=== PATIENT | male | born 1975 | race Caucasian/White ===

== ENCOUNTER 2016-04-02 10:52 | Emergency (ER) | payer MEDICAID ==
[~2016-04-02] VITALS: Ht 185.4 cm; Wt 111.4 kg
[~2016-04-02 10:52] MED LIST: AMOXICILLIN 50500 MG PO; LEXAPRO20 MG PO; ULTRAM 50MG TAB50 MG PO
[2016-04-02 11:00] VITALS: BP 131/93; TEMP 98.3
[2016-04-02] MEDS ORDERED: NEURONTIN300 MG/CAP PO (11:04)
[2016-04-02 11:26] LABS: BASO % 0.5 % (0.0-2.0); EOS # 0.2 (0.0-0.7); EOS % 3.9 % (0-4.0); GRAN # 2.7 (1.4-6.5); GRAN % 47.1 % (42.2-75.2); HEMOGLOBIN 13.8 g/dl (13.5-18.0); LYMPH # 2.2 (1.2-3.4); LYMPH % 38.8 % (20.0-51.0); MEAN CELL VOLUME 88 fl (80.0-100.0); MEAN CORPUSCULAR HEMOGLOBIN 30 pg (27.0-31.0); MEAN CORPUSCULAR HGB CONC 34 g/dl (33.0-37.0); MONO # 0.5 (0.1-0.6); MONO % 9.3 % (1.7-9.3); PLATELET COUNT 194 K/mm3 (130-400); RED BLOOD COUNT 4.67 M/mm3 (4.20-5.60); REDCELL DISTRIBUTION WIDTH-CV 13.6 % (11.5-14.5); WHITE BLOOD COUNT 5.7 K/mm3 (4.8-10.8)
[2016-04-02 11:47] LABS: ADJUSTED CALCIUM 9.2 mg/dL (8.4-10.2); ALBUMIN 4.1 gm/dL (3.5-5.0); BILIRUBIN,TOTAL 0.5 mg/dL (0.0-1.0); CALCIUM 9.3 mg/dL (8.4-10.2); CREATININE, serum 1.03 mg/dL (0.66-1.25); POTASSIUM 4.3 mmol/L (3.4-5.0); TOTAL PROTEIN 7.5 gm/dL (6.4-8.2)
[2016-04-02] MEDS ORDERED: IBU800 M1 PO (13:21)
[2016-04-02] MEDS ORDERED: FLOMAX 0.40.4 MG/CAP PO (13:21)
[2016-04-02] MEDS ORDERED: NORCO 325 MG-7.1 TAB PO (13:21)
[2016-04-02 13:42] LABS: PH 6 (5-8); SQUAMOUS EPITHELIAL None Seen /hpf; URINE APPEARANCE Clear; URINE BACTERIA None Seen /hpf; URINE BILIRUBIN Negative (NEGATIVE); URINE BLOOD Negative (NEGATIVE); URINE COLOR Yellow; URINE GLUCOSE Negative (NEGATIVE); URINE KETONE Negative (NEGATIVE); URINE RBC 0-2 /hpf; URINE UROBILINOGEN Negative (NEGATIVE); URINE WBC 0-2 /hpf
[2016-04-02 14:10] VITALS: PULSE 73
== END 2016-04-02 14:10 | disposition home or self-care (01) ==
LOC: COL.ER 10:52
PROVIDERS: Physician Assistant
DX: N20.0 Calculus of kidney (principal); Z87.442 Personal history of urinary calculi
CPT/HCPCS: J1170; J2405; J7030

== ENCOUNTER → 2016-04-04 | Outpatient (CLI) | payer MEDICAID ==
[~2016-04-04] MED LIST changes: +AMBIEN 10MG10 MG PO; +ASPI325T6 PO; +CATAPRES 0.1MG0.1 MG PO; +DESYREL 100MG100 MG PO; +DOXYCYCLINE 10100 MG PO; +EFFEXOR 75M75 MG/TAB PO; +FIORICET 325 MG1 TA1 PO; +FLOMAX 0.40.4 MG/CAP PO; +IBU800 M1 PO; +KLONOPIN 1MG1 MG PO; +LIPITOR 40MG TA40 MG PO; +NEURONTIN300 MG/CAP PO; +NORCO 325 MG-51 TAB PO; +NORCO 325 MG-7.1 TAB PO; +PERCOCET 325 MG1 TA2 PO; +PLAVIX 75MG TAB75 MG PO; +ZANAFLEX CAPSULE2 MG PO; +ZOFRAN ODT4 MG PO
== END ==
LOC: COL.RAD 14:15
DX: N20.0 Calculus of kidney (principal)

== ENCOUNTER 2016-04-28 15:29 | Emergency (ER) | payer MEDICAID ==
[~2016-04-28] VITALS: Ht 182.9 cm; Wt 113.6 kg
[~2016-04-28 15:29] MED LIST changes: -AMBIEN 10MG10 MG PO; -ASPI325T6 PO; -CATAPRES 0.1MG0.1 MG PO; -DESYREL 100MG100 MG PO; -DOXYCYCLINE 10100 MG PO; -EFFEXOR 75M75 MG/TAB PO; -FIORICET 325 MG1 TA1 PO; -KLONOPIN 1MG1 MG PO; -LIPITOR 40MG TA40 MG PO; -NORCO 325 MG-51 TAB PO; -PERCOCET 325 MG1 TA2 PO; -PLAVIX 75MG TAB75 MG PO; -ZANAFLEX CAPSULE2 MG PO; -ZOFRAN ODT4 MG PO
[2016-04-28 15:33] VITALS: TEMP 99.3
[2016-04-28] MEDS ORDERED: EFFEXOR 75M75 MG/TAB PO (15:56)
[2016-04-28 16:19] LABS: BASO % 0.6 % (0.0-2.0); EOS # 0.2 (0.0-0.7); EOS % 3.3 % (0-4.0); GRAN # 3.6 (1.4-6.5); GRAN % 51.6 % (42.2-75.2); HEMATOCRIT 39.2 % (42.0-52.0); HEMOGLOBIN 13.4 g/dl (13.5-18.0); LYMPH # 2.5 (1.2-3.4); LYMPH % 36.4 % (20.0-51.0); MEAN CELL VOLUME 87 fl (80.0-100.0); MEAN CORPUSCULAR HEMOGLOBIN 30 pg (27.0-31.0); MEAN CORPUSCULAR HGB CONC 34 g/dl (33.0-37.0); MONO # 0.6 (0.1-0.6); PLATELET COUNT 244 K/mm3 (130-400); RED BLOOD COUNT 4.53 M/mm3 (4.20-5.60); REDCELL DISTRIBUTION WIDTH-CV 13.2 % (11.5-14.5); WHITE BLOOD COUNT 6.9 K/mm3 (4.8-10.8)
[2016-04-28 17:27] LABS: ADJUSTED CALCIUM 9.1 mg/dL (8.4-10.2); BILIRUBIN,TOTAL 0.6 mg/dL (0.0-1.0); C-REACTIVE PROTEIN 0.7 mg/dL (0.0-0.9); CALCIUM 9.1 mg/dL (8.4-10.2); CREATININE, serum 1.11 mg/dL (0.66-1.25); TOTAL PROTEIN 7.2 gm/dL (6.4-8.2)
[2016-04-28 18:59] VITALS: BP 132/75; PULSE 76
[2016-04-29] MEDS ORDERED: NORCO 325 MG-51 TAB PO (18:51)
== END 2016-04-28 19:05 | disposition home or self-care (01) ==
LOC: COL.ER 15:29
PROVIDERS: Emergency Medicine
DX: R51 Headache (principal); H53.9 Unspecified visual disturbance
CPT/HCPCS: J1170; J1200; J1885; J2405; J7030

== ENCOUNTER 2016-04-29 17:57 | Emergency (ER) | payer MEDICAID ==
[~2016-04-29] VITALS: Ht 182.9 cm; Wt 114.1 kg
[~2016-04-29 17:57] MED LIST changes: +EFFEXOR 75M75 MG/TAB PO
[2016-04-29 18:03] VITALS: BP 125/74; TEMP 98.3
[2016-04-29] MEDS ORDERED: NORCO 325 MG-51 TAB PO (18:51)
[2016-04-29 19:01] VITALS: PULSE 69
== END 2016-04-29 19:02 | disposition home or self-care (01) ==
LOC: COL.ER 17:57
DX: S62.661A Nondisplaced fracture of distal phalanx of left index finger, initial encounter for closed fracture (principal); S60.022A Contusion of left index finger without damage to nail, initial encounter; W22.8XXA Striking against or struck by other objects, initial encounter; W27.8XXA Contact with other nonpowered hand tool, initial encounter; Y92.009 Unspecified place in unspecified non-institutional (private) residence as the place of occurrence of the external cause

== ENCOUNTER → 2016-05-09 | Outpatient (CLI) | payer MEDICAID ==
[~2016-05-09] MED LIST changes: +AMBIEN 10MG10 MG PO; +ASPI325T6 PO; +CATAPRES 0.1MG0.1 MG PO; +DESYREL 100MG100 MG PO; +DOXYCYCLINE 10100 MG PO; +FIORICET 325 MG1 TA1 PO; +KLONOPIN 1MG1 MG PO; +LIPITOR 40MG TA40 MG PO; +NORCO 325 MG-51 TAB PO; +PERCOCET 325 MG1 TA2 PO; +PLAVIX 75MG TAB75 MG PO; +ZANAFLEX CAPSULE2 MG PO; +ZOFRAN ODT4 MG PO
[2016-05-14 00:09] LABS: VARICELLA INDEX 2.43 OD Ratio (>1.09)
[2016-06-17 14:53] LABS: HERPES SIMPLEX VIRUS 1 IGG Positive (()); HERPES SIMPLEX VIRUS 2 IGG Negative (())
== END ==
LOC: COL.RAD 07:46
PROVIDERS: Internal Medicine
DX: H34.232 Retinal artery branch occlusion, left eye (principal)
CPT/HCPCS: A9585

== ENCOUNTER 2016-05-23 05:17 | Day surgery (SDC) | payer MEDICAID ==
[2016-05-23] VITALS (7 sets, daily range): BP systolic 131–146; BP diastolic 75–90; PULSE 52–59; TEMP 97.4–98.1
[~2016-05-23] VITALS: Ht 182.9 cm; Wt 113.6 kg
[~2016-05-23 05:17] MED LIST changes: -AMBIEN 10MG10 MG PO; -ASPI325T6 PO; -CATAPRES 0.1MG0.1 MG PO; -DESYREL 100MG100 MG PO; -DOXYCYCLINE 10100 MG PO; -FIORICET 325 MG1 TA1 PO; -KLONOPIN 1MG1 MG PO; -LIPITOR 40MG TA40 MG PO; -PERCOCET 325 MG1 TA2 PO; -PLAVIX 75MG TAB75 MG PO; -ZANAFLEX CAPSULE2 MG PO; -ZOFRAN ODT4 MG PO
[2016-05-23] MEDS ORDERED: EFFEXOR 75M75 MG/TAB PO (06:40)
[2016-05-23] MEDS ORDERED: DESYREL 100MG100 MG PO (06:42)
[2016-05-23] MEDS ORDERED: CATAPRES 0.1MG0.1 MG PO (06:43)
[2016-05-23] MEDS ORDERED: KLONOPIN 1MG1 MG PO (06:43)
[2016-05-23] MEDS ORDERED: ASPI325T6 PO (06:44)
[2016-05-23] MEDS ORDERED: LIPITOR 40MG TA40 MG PO (06:44)
[2016-05-23] MEDS ORDERED: PERCOCET 325 MG1 TA2 PO (09:13)
[2016-05-23] MEDS ORDERED: ZOFRAN ODT4 MG PO (09:13)
== END 2016-05-23 11:35 | disposition home or self-care (01) ==
LOC: SDCO 05:17
DX: H54.62 Unqualified visual loss, left eye, normal vision right eye (principal); G44.89 Other headache syndrome
CPT/HCPCS: J2250; J2270; J2704; J3010; J7120

== ENCOUNTER 2016-05-24 11:15 | Emergency (ER) | payer MEDICAID ==
[~2016-05-24] VITALS: Ht 182.9 cm; Wt 113.6 kg
[~2016-05-24 11:15] MED LIST changes: +ASPI325T6 PO; +CATAPRES 0.1MG0.1 MG PO; +DESYREL 100MG100 MG PO; +KLONOPIN 1MG1 MG PO; +LIPITOR 40MG TA40 MG PO; +PERCOCET 325 MG1 TA2 PO; +ZOFRAN ODT4 MG PO
[2016-05-24 11:40] VITALS: BP 141/89; TEMP 97.4
[2016-05-24 13:28] VITALS: PULSE 58
== END 2016-05-24 13:29 | disposition home or self-care (01) ==
LOC: COL.ER 11:15
DX: R51 Headache (principal)
CPT/HCPCS: J1170; J2550

== ENCOUNTER 2016-06-10 12:49 | Outpatient (CLI) | payer MEDICAID ==
[~2016-06-10] VITALS: Ht 182.9 cm; Wt 116.8 kg
[2016-06-10 13:24] VITALS: BP 121/80; PULSE 61
[2016-06-10 14:40] VITALS: BP 119/71; PULSE 64
[2016-06-10 14:50] VITALS: BP 119/71; PULSE 62
[2016-06-10 14:55] VITALS: BP 124/60; PULSE 61
[2016-06-10 15:10] VITALS: BP 137/71; PULSE 54
[2016-06-10 15:25] VITALS: BP 159/90; PULSE 55; TEMP 97.5
[2016-06-10 15:33] LABS: CEREBROSPINAL TUBE #1; CEREBROSPINAL TUBE #3; CSF APPEARANCE CLEAR; CSF COLOR COLORLESS
[2016-07-02 14:10] LABS: VARICELLA ZOSTER DNA Negative (()); VDRL-CSF Negative (())
== END 2016-06-10 15:45 | disposition home or self-care (01) ==
LOC: COL.RAD 12:49
PROVIDERS: Family Medicine
DX: H34.12 Central retinal artery occlusion, left eye (principal); B96.89 Other specified bacterial agents as the cause of diseases classified elsewhere

== ENCOUNTER → 2016-06-13 | Outpatient (CLI) | payer MEDICAID ==
[~2016-06-13] MED LIST changes: +AMBIEN 10MG10 MG PO; +DOXYCYCLINE 10100 MG PO; +FIORICET 325 MG1 TA1 PO; +PLAVIX 75MG TAB75 MG PO; +ZANAFLEX CAPSULE2 MG PO
== END ==
LOC: COL.RAD 13:06
DX: I67.1 Cerebral aneurysm, nonruptured (principal); R51 Headache

== ENCOUNTER → 2016-07-04 | Outpatient (CLI) | payer MEDICAID | LOC: MHCPAIN 10:47 | DX: G89.29 Other chronic pain (principal); M54.12 Radiculopathy, cervical region; M54.81 Occipital neuralgia | CPT/HCPCS: G0463 ==

== ENCOUNTER → 2016-08-01 | Outpatient (CLI) | payer MEDICAID | LOC: COL.RAD 07:19 | DX: M54.12 Radiculopathy, cervical region (principal); M48.02 Spinal stenosis, cervical region; Z98.1 Arthrodesis status | CPT/HCPCS: A9585 ==

== ENCOUNTER 2016-08-02 11:43 | Emergency (ER) | payer MEDICAID ==
[~2016-08-02] VITALS: Ht 182.9 cm; Wt 113.6 kg
[~2016-08-02 11:43] MED LIST changes: -AMBIEN 10MG10 MG PO; -DOXYCYCLINE 10100 MG PO; -FIORICET 325 MG1 TA1 PO; -PLAVIX 75MG TAB75 MG PO; -ZANAFLEX CAPSULE2 MG PO
[2016-08-02 12:31] LABS: BASO % 0.7 % (0.0-2.0); EOS # 0.3 (0.0-0.7); EOS % 5.4 % (0-4.0); GRAN # 2.1 (1.4-6.5); GRAN % 38.9 % (42.2-75.2); HEMATOCRIT 43.3 % (42.0-52.0); HEMOGLOBIN 14.2 g/dl (13.5-18.0); LYMPH # 2.5 (1.2-3.4); LYMPH % 45.4 % (20.0-51.0); MEAN CELL VOLUME 90 fl (80.0-100.0); MEAN CORPUSCULAR HEMOGLOBIN 29 pg (27.0-31.0); MEAN CORPUSCULAR HGB CONC 33 g/dl (33.0-37.0); MEAN PLATELET VOLUME 9.8 fl (7.4-10.4); MONO # 0.5 (0.1-0.6); MONO % 9.4 % (1.7-9.3); PLATELET COUNT 193 K/mm3 (130-400); RED BLOOD COUNT 4.84 M/mm3 (4.20-5.60); REDCELL DISTRIBUTION WIDTH-CV 13.4 % (11.5-14.5); WHITE BLOOD COUNT 5.4 K/mm3 (4.8-10.8)
[2016-08-02 12:42] LABS: ADJUSTED CALCIUM 8.8 mg/dL (8.4-10.2); ALANINE AMINOTRANSFERASE 38 U/L (21-72); ALBUMIN 4.1 gm/dL (3.5-5.0); ALKALINE PHOSPHATASE 72 U/L (50-136); ANION GAP 12 mmol/L (7-16); BILIRUBIN,TOTAL 0.6 mg/dL (0.0-1.0); BLOOD UREA NITROGEN 16 mg/dL (9-20); CALCIUM 8.9 mg/dL (8.4-10.2); CARBON DIOXIDE 24 mmol/L (22-30); CHLORIDE 103 mmol/L (98-107); CREATININE, serum 0.96 mg/dL (0.66-1.25); GLUCOSE 92 mg/dL (74-106); POTASSIUM 4.1 mmol/L (3.4-5.0); SODIUM 139 mmol/L (137-145); TOTAL PROTEIN 7.1 gm/dL (6.4-8.2)
[2016-08-02 12:51] LABS: B-TYPE NATRIURETIC PEPTIDE 13 pg/mL (0-125)
[2016-08-02 12:56] LABS: C-REACTIVE PROTEIN < 0.5 mg/dL (0.0-0.9); TROPONIN-I < 0.012 ng/mL (0.000-0.034)
[2016-08-02 12:57] LABS: ERYTHROCYTE SEDIMENTATION RATE 1 mm/hr (0-15)
[2016-08-02 13:06] LABS: PH 6 (5-8); SQUAMOUS EPITHELIAL None Seen /hpf; URINE APPEARANCE Clear; URINE BACTERIA None Seen /hpf; URINE BILIRUBIN Negative (NEGATIVE); URINE BLOOD Negative (NEGATIVE); URINE COLOR Yellow; URINE GLUCOSE Negative (NEGATIVE); URINE KETONE Negative (NEGATIVE); URINE RBC 0-2 /hpf; URINE UROBILINOGEN Negative (NEGATIVE); URINE WBC 0-2 /hpf
[2016-08-02 14:53] VITALS: BP 133/67; PULSE 67; TEMP 98.4
[2016-08-02] MEDS ORDERED: FIORICET 325 MG1 TA1 PO (15:24)
== END 2016-08-02 15:22 | disposition home or self-care (01) ==
LOC: COL.ER 11:43
PROVIDERS: Emergency Medicine
DX: R07.9 Chest pain, unspecified (principal); R51 Headache; R11.0 Nausea; R06.02 Shortness of breath; R07.1 Chest pain on breathing; H54.62 Unqualified visual loss, left eye, normal vision right eye
CPT/HCPCS: J1170; J1200; J1885; J2550; J7030

== ENCOUNTER → 2016-08-04 | Outpatient (CLI) | payer MEDICAID ==
[~2016-08-04] MED LIST changes: +AMBIEN 10MG10 MG PO; +DOXYCYCLINE 10100 MG PO; +FIORICET 325 MG1 TA1 PO; +PLAVIX 75MG TAB75 MG PO; +ZANAFLEX CAPSULE2 MG PO
== END ==
LOC: MHCPAIN 07:38
DX: G89.29 Other chronic pain (principal); M50.90 Cervical disc disorder, unspecified, unspecified cervical region; M54.12 Radiculopathy, cervical region; M54.81 Occipital neuralgia; M96.1 Postlaminectomy syndrome, not elsewhere classified
CPT/HCPCS: G0463

== ENCOUNTER → 2016-08-19 | Outpatient (CLI) | payer MEDICAID | LOC: MHCPAIN 10:47 | DX: G89.29 Other chronic pain (principal); M50.90 Cervical disc disorder, unspecified, unspecified cervical region; M54.12 Radiculopathy, cervical region; M54.81 Occipital neuralgia; R51 Headache | CPT/HCPCS: G0463 ==

== ENCOUNTER 2016-08-25 09:43 | Outpatient (CLI) | payer MEDICAID ==
[~2016-08-25] VITALS: Ht 182.9 cm; Wt 90.9 kg
[2016-08-25] VITALS (21 sets, daily range): BP systolic 105–129; BP diastolic 52–93; PULSE 55–67; TEMP 96.9–97.5
[~2016-08-25 09:43] MED LIST changes: -AMBIEN 10MG10 MG PO; -DOXYCYCLINE 10100 MG PO; -PLAVIX 75MG TAB75 MG PO; -ZANAFLEX CAPSULE2 MG PO
[2016-08-25 10:23] LABS: HEMATOCRIT 41.6 % (42.0-52.0); HEMOGLOBIN 13.7 g/dl (13.5-18.0); MEAN CELL VOLUME 90 fl (80.0-100.0); MEAN CORPUSCULAR HEMOGLOBIN 30 pg (27.0-31.0); MEAN CORPUSCULAR HGB CONC 33 g/dl (33.0-37.0); MEAN PLATELET VOLUME 10.1 fl (7.4-10.4); PLATELET COUNT 204 K/mm3 (130-400); RED BLOOD COUNT 4.64 M/mm3 (4.20-5.60); REDCELL DISTRIBUTION WIDTH-CV 13.4 % (11.5-14.5); WHITE BLOOD COUNT 5.3 K/mm3 (4.8-10.8)
[2016-08-25 10:28] LABS: CALCIUM 8.7 mg/dL (8.4-10.2); CREATININE, serum 0.98 mg/dL (0.66-1.25); POTASSIUM 4.3 mmol/L (3.4-5.0)
[2016-08-25] MEDS ORDERED: AMBIEN 10MG10 MG PO (11:04)
== END 2016-08-25 13:48 | disposition home or self-care (01) ==
LOC: COL.RAD 09:43
PROVIDERS: Internal Medicine Cardiovascular Disease
DX: I08.1 Rheumatic disorders of both mitral and tricuspid valves (principal); R07.89 Other chest pain; R06.02 Shortness of breath; R00.2 Palpitations; H34.12 Central retinal artery occlusion, left eye; F41.9 Anxiety disorder, unspecified; F43.10 Post-traumatic stress disorder, unspecified; F32.9 Major depressive disorder, single episode, unspecified; Z79.899 Other long term (current) drug therapy; Z87.891 Personal history of nicotine dependence
CPT/HCPCS: J2250; J3010

== ENCOUNTER → 2016-08-28 | Outpatient (CLI) | payer MEDICAID ==
[~2016-08-28] MED LIST changes: +AMBIEN 10MG10 MG PO; +DOXYCYCLINE 10100 MG PO; +PLAVIX 75MG TAB75 MG PO; +ZANAFLEX CAPSULE2 MG PO
== END ==
LOC: MHCPAIN 12:03
DX: M50.90 Cervical disc disorder, unspecified, unspecified cervical region (principal)
CPT/HCPCS: A9585; J1040

== ENCOUNTER → 2016-09-09 | Outpatient (CLI) | payer MEDICAID | LOC: MHCPAIN 09:52 | DX: G89.29 Other chronic pain (principal); M50.90 Cervical disc disorder, unspecified, unspecified cervical region; M54.12 Radiculopathy, cervical region; M54.81 Occipital neuralgia; R51 Headache; G47.33 Obstructive sleep apnea (adult) (pediatric) | CPT/HCPCS: G0463 ==

== ENCOUNTER 2016-09-14 19:19 | Emergency (ER) | payer MEDICAID ==
[~2016-09-14] VITALS: Ht 182.9 cm; Wt 113.6 kg
[~2016-09-14 19:19] MED LIST changes: -DOXYCYCLINE 10100 MG PO; -PLAVIX 75MG TAB75 MG PO; -ZANAFLEX CAPSULE2 MG PO
[2016-09-14 19:21] VITALS: BP 134/72; TEMP 98.7
[2016-09-14] MEDS ORDERED: PLAVIX 75MG TAB75 MG PO (19:25)
[2016-09-14] MEDS ORDERED: DOXYCYCLINE 10100 MG PO (19:50)
[2016-09-14 20:04] VITALS: PULSE 68
== END 2016-09-14 20:05 | disposition home or self-care (01) ==
LOC: COL.ER 19:19
DX: L03.211 Cellulitis of face (principal); I25.10 Atherosclerotic heart disease of native coronary artery without angina pectoris; I10 Essential (primary) hypertension; Z87.891 Personal history of nicotine dependence; Z79.02 Long term (current) use of antithrombotics/antiplatelets

== ENCOUNTER → 2016-09-16 | Outpatient (CLI) | payer MEDICAID ==
[~2016-09-16] MED LIST changes: +DOXYCYCLINE 10100 MG PO; +PLAVIX 75MG TAB75 MG PO; +ZANAFLEX CAPSULE2 MG PO
== END ==
LOC: MHCPAIN 08:58
DX: Z53.8 Procedure and treatment not carried out for other reasons (principal)
CPT/HCPCS: J1040

== ENCOUNTER → 2016-10-06 | Outpatient (CLI) | payer MEDICAID | LOC: MHCPAIN 09:58 | DX: Z02.89 Encounter for other administrative examinations (principal) | CPT/HCPCS: J1040 ==

== ENCOUNTER → 2016-10-14 | Outpatient (CLI) | payer MEDICAID | LOC: MHCPAIN 11:22 | DX: M54.81 Occipital neuralgia (principal) | CPT/HCPCS: J1040 ==

== ENCOUNTER 2016-11-06 10:36 | Day surgery (SDC) | payer MEDICAID ==
[2016-11-06] VITALS (11 sets, daily range): BP systolic 112–128; BP diastolic 65–80; PULSE 53–70; TEMP 97.6
[~2016-11-06] VITALS: Ht 185.4 cm; Wt 115.9 kg
[~2016-11-06 10:36] MED LIST changes: -ZANAFLEX CAPSULE2 MG PO
[2016-11-06 11:09] LABS: HEMATOCRIT 43.8 % (42.0-52.0); HEMOGLOBIN 14.5 g/dl (13.5-18.0); MEAN CELL VOLUME 89 fl (80.0-100.0); MEAN CORPUSCULAR HEMOGLOBIN 29 pg (27.0-31.0); MEAN CORPUSCULAR HGB CONC 33 g/dl (33.0-37.0); MEAN PLATELET VOLUME 9.8 fl (7.4-10.4); PLATELET COUNT 245 K/mm3 (130-400); RED BLOOD COUNT 4.93 M/mm3 (4.20-5.60); REDCELL DISTRIBUTION WIDTH-CV 13.6 % (11.5-14.5); WHITE BLOOD COUNT 6.3 K/mm3 (4.8-10.8)
[2016-11-06 11:14] LABS: PROTHROMBIN TIME 10.8 SECONDS (9.7-12.8)
[2016-11-06 11:24] LABS: CREATININE, serum 0.96 mg/dL (0.66-1.25); POTASSIUM 4.1 mmol/L (3.4-5.0)
[2016-11-06] MEDS ORDERED: PERCOCET 325 MG1 TA2 PO (12:07)
== END 2016-11-06 19:21 | disposition home or self-care (01) ==
LOC: EUO 10:36 → COL.CAR 11:15 → EUO 19:21
PROVIDERS: Internal Medicine Cardiovascular Disease
DX: Q21.1 Atrial septal defect (principal); E78.5 Hyperlipidemia, unspecified; F41.9 Anxiety disorder, unspecified; I70.1 Atherosclerosis of renal artery; Z86.59 Personal history of other mental and behavioral disorders
CPT/HCPCS: C1760; C1769; C1894; J1200; J2250; J2930; J3010; Q9967

== ENCOUNTER → 2016-11-11 | Outpatient (CLI) | payer MEDICAID ==
[~2016-11-11] MED LIST changes: +ZANAFLEX CAPSULE2 MG PO
== END ==
LOC: MHCPAIN 09:57
DX: M50.10 Cervical disc disorder with radiculopathy, unspecified cervical region (principal); M54.81 Occipital neuralgia; R51 Headache; Z87.891 Personal history of nicotine dependence; Z79.82 Long term (current) use of aspirin
CPT/HCPCS: G0463

== ENCOUNTER 2016-12-08 08:25 | Emergency (ER) | payer MEDICAID ==
[~2016-12-08] VITALS: Ht 182.9 cm; Wt 118.2 kg
[~2016-12-08 08:25] MED LIST changes: -ZANAFLEX CAPSULE2 MG PO
[2016-12-08 08:27] VITALS: TEMP 97.9
[2016-12-08 09:33] LABS: PH 7 (5-8); SQUAMOUS EPITHELIAL None Seen /hpf; URINE APPEARANCE Clear; URINE BACTERIA None Seen /hpf; URINE BILIRUBIN Negative (NEGATIVE); URINE BLOOD Negative (NEGATIVE); URINE COLOR Yellow; URINE GLUCOSE Negative (NEGATIVE); URINE KETONE Negative (NEGATIVE); URINE RBC None Seen /hpf; URINE UROBILINOGEN Negative (NEGATIVE); URINE WBC 0-2 /hpf
[2016-12-08 10:16] LABS: BASO % 0.7 % (0.0-2.0); EOS # 0.3 (0.0-0.7); EOS % 5.4 % (0-4.0); GRAN # 3.6 (1.4-6.5); GRAN % 60.4 % (42.2-75.2); HEMATOCRIT 45.1 % (42.0-52.0); HEMOGLOBIN 14.9 g/dl (13.5-18.0); LYMPH # 1.6 (1.2-3.4); LYMPH % 26.9 % (20.0-51.0); MEAN CELL VOLUME 90 fl (80.0-100.0); MEAN CORPUSCULAR HEMOGLOBIN 30 pg (27.0-31.0); MEAN CORPUSCULAR HGB CONC 33 g/dl (33.0-37.0); MEAN PLATELET VOLUME 10.4 fl (7.4-10.4); MONO # 0.4 (0.1-0.6); MONO % 6.4 % (1.7-9.3); PLATELET COUNT 224 K/mm3 (130-400); RED BLOOD COUNT 5.02 M/mm3 (4.20-5.60); REDCELL DISTRIBUTION WIDTH-CV 13.3 % (11.5-14.5)
[2016-12-08 10:24] LABS: ALBUMIN 4.2 gm/dL (3.5-5.0); BILIRUBIN,TOTAL 0.6 mg/dL (0.0-1.0); CALCIUM 9.2 mg/dL (8.4-10.2); CREATININE, serum 1.01 mg/dL (0.66-1.25); POTASSIUM 4.2 mmol/L (3.4-5.0); TOTAL PROTEIN 7.4 gm/dL (6.4-8.2)
[2016-12-08 13:40] VITALS: BP 114/68; PULSE 63
[2016-12-08] MEDS ORDERED: ZANAFLEX CAPSULE2 MG PO (13:49)
== END 2016-12-08 13:57 | disposition home or self-care (01) ==
LOC: COL.ER 08:25
PROVIDERS: Physician Assistant
DX: M62.830 Muscle spasm of back (principal); M54.2 Cervicalgia; G89.29 Other chronic pain; Z87.440 Personal history of urinary (tract) infections; Z87.442 Personal history of urinary calculi; Z87.891 Personal history of nicotine dependence
CPT/HCPCS: J1170; J2360; J2550; J7030

== ENCOUNTER → 2016-12-30 | Outpatient (CLI) | payer MEDICAID ==
[~2016-12-30] MED LIST changes: +ZANAFLEX CAPSULE2 MG PO
== END ==
LOC: MHCPAIN 08:47
DX: G89.29 Other chronic pain (principal); M54.16 Radiculopathy, lumbar region; M53.3 Sacrococcygeal disorders, not elsewhere classified; Z87.891 Personal history of nicotine dependence; Z79.82 Long term (current) use of aspirin
CPT/HCPCS: G0463

== ENCOUNTER 2017-02-06 08:45 | Outpatient (RCR) | payer MEDICAID ==
[2017-03-07] MEDS ORDERED: COMPAZINE 110 MG/TAB PO (17:13)
== END 2017-04-07 ==
LOC: MKS.ESL.PT
DX: M51.36 Other intervertebral disc degeneration, lumbar region (principal); M50.30 Other cervical disc degeneration, unspecified cervical region
CPT/HCPCS: G0283-GP

== ENCOUNTER → 2017-02-11 | Outpatient (CLI) | payer MEDICAID | LOC: MHCPAIN 10:07 | DX: G89.29 Other chronic pain (principal); M50.122 Cervical disc disorder at C5-C6 level with radiculopathy; M54.81 Occipital neuralgia; R51 Headache; Z87.891 Personal history of nicotine dependence | CPT/HCPCS: G0463 ==

== ENCOUNTER 2017-03-07 14:38 | Emergency (ER) | payer MEDICAID ==
[~2017-03-07] VITALS: Ht 182.9 cm; Wt 118.2 kg
[2017-03-07 14:40] VITALS: TEMP 97.9
[2017-03-07 15:14] LABS: BASO # 0.1 (0.0-0.2); BASO % 0.8 % (0.0-2.0); EOS # 0.4 (0.0-0.7); EOS % 6.8 % (0-4.0); GRAN # 2.5 (1.4-6.5); GRAN % 41.8 % (42.2-75.2); HEMATOCRIT 42.5 % (42.0-52.0); HEMOGLOBIN 14.1 g/dl (13.5-18.0); LYMPH # 2.4 (1.2-3.4); LYMPH % 39.5 % (20.0-51.0); MEAN CELL VOLUME 89 fl (80.0-100.0); MEAN CORPUSCULAR HEMOGLOBIN 30 pg (27.0-31.0); MEAN CORPUSCULAR HGB CONC 33 g/dl (33.0-37.0); MEAN PLATELET VOLUME 10.1 fl (7.4-10.4); MONO # 0.7 (0.1-0.6); MONO % 10.8 % (1.7-9.3); PLATELET COUNT 247 K/mm3 (130-400); RED BLOOD COUNT 4.78 M/mm3 (4.20-5.60)
[2017-03-07 15:21] LABS: INR 0.9 (0.8-3.0); PROTHROMBIN TIME 10.9 SECONDS (9.7-12.8)
[2017-03-07 15:24] LABS: PARTIAL THROMBOPLASTIN TIME 29.2 SECONDS (26.0-37.0)
[2017-03-07 15:25] LABS: ADJUSTED CALCIUM 9.1 mg/dL (8.4-10.2); ALANINE AMINOTRANSFERASE 69 U/L (21-72); ALBUMIN 4.4 gm/dL (3.5-5.0); ALKALINE PHOSPHATASE 78 U/L (50-136); ANION GAP 13 mmol/L (7-16); BILIRUBIN,TOTAL 0.5 mg/dL (0.0-1.0); BLOOD UREA NITROGEN 13 mg/dL (9-20); CALCIUM 9.4 mg/dL (8.4-10.2); CARBON DIOXIDE 21 mmol/L (22-30); CHLORIDE 108 mmol/L (98-107); CREATININE, serum 1.02 mg/dL (0.66-1.25); GLUCOSE 102 mg/dL (74-106); POTASSIUM 4.1 mmol/L (3.4-5.0); SODIUM 142 mmol/L (137-145); TOTAL PROTEIN 7.6 gm/dL (6.4-8.2)
[2017-03-07 15:37] LABS: TROPONIN-I < 0.012 ng/mL (0.000-0.034)
[2017-03-07] MEDS ORDERED: COMPAZINE 110 MG/TAB PO (17:13)
[2017-03-07 17:27] VITALS: BP 133/79; PULSE 57
== END 2017-03-07 17:28 | disposition home or self-care (01) ==
LOC: COL.ER 14:38
PROVIDERS: Emergency Medicine
DX: R07.9 Chest pain, unspecified (principal); R51 Headache; E78.5 Hyperlipidemia, unspecified; M54.2 Cervicalgia; G89.29 Other chronic pain; E66.9 Obesity, unspecified; Z68.35 Body mass index [BMI] 35.0-35.9, adult; Z95.5 Presence of coronary angioplasty implant and graft; Z87.891 Personal history of nicotine dependence; Z79.82 Long term (current) use of aspirin
CPT/HCPCS: J0780; J1200; J1885; J7030

== ENCOUNTER 2017-04-20 09:44 | Emergency (ER) | payer MEDICAID ==
[~2017-04-20] VITALS: Ht 182.9 cm; Wt 114.5 kg
[~2017-04-20 09:44] MED LIST changes: +COMPAZINE 110 MG/TAB PO
[2017-04-20 09:47] VITALS: TEMP 98.3
[2017-04-20 11:04] LABS: BASO # 0.1 (0.0-0.2); BASO % 0.8 % (0.0-2.0); EOS # 0.6 (0.0-0.7); EOS % 9.6 % (0-4.0); GRAN # 3.1 (1.4-6.5); GRAN % 48.2 % (42.2-75.2); HEMOGLOBIN 14.7 g/dl (13.5-18.0); LYMPH # 2.2 (1.2-3.4); LYMPH % 33.1 % (20.0-51.0); MEAN CELL VOLUME 88 fl (80.0-100.0); MEAN CORPUSCULAR HEMOGLOBIN 29 pg (27.0-31.0); MEAN CORPUSCULAR HGB CONC 33 g/dl (33.0-37.0); MONO # 0.5 (0.1-0.6); PLATELET COUNT 240 K/mm3 (130-400); RED BLOOD COUNT 5.01 M/mm3 (4.20-5.60); REDCELL DISTRIBUTION WIDTH-CV 13.7 % (11.5-14.5)
[2017-04-20 11:10] LABS: INR 0.9 (0.8-3.0); PROTHROMBIN TIME 10.9 SECONDS (9.7-12.8)
[2017-04-20 11:14] LABS: ALBUMIN 4.5 gm/dL (3.5-5.0); BILIRUBIN,TOTAL 0.3 mg/dL (0.0-1.0); CALCIUM 9.5 mg/dL (8.4-10.2); CREATININE, serum 0.96 mg/dL (0.66-1.25); POTASSIUM 4.4 mmol/L (3.4-5.0); TOTAL PROTEIN 7.6 gm/dL (6.4-8.2)
[2017-04-20 12:21] VITALS: BP 135/79; PULSE 60
== END 2017-04-20 12:22 | disposition home or self-care (01) ==
LOC: COL.ER 09:44
PROVIDERS: Nurse Practitioner
DX: G44.219 Episodic tension-type headache, not intractable (principal); I25.10 Atherosclerotic heart disease of native coronary artery without angina pectoris; I10 Essential (primary) hypertension; Z79.82 Long term (current) use of aspirin
CPT/HCPCS: J0780; J1200; J7030

== ENCOUNTER → 2017-04-29 | Outpatient (CLI) | payer MEDICAID ==
[2017-04-29 11:31] LABS: HEMATOCRIT 43.3 % (42.0-52.0); HEMOGLOBIN 14.1 g/dl (13.5-18.0); MEAN CELL VOLUME 90 fl (80.0-100.0); MEAN CORPUSCULAR HEMOGLOBIN 29 pg (27.0-31.0); MEAN CORPUSCULAR HGB CONC 33 g/dl (33.0-37.0); MEAN PLATELET VOLUME 9.5 fl (7.4-10.4); PLATELET COUNT 255 K/mm3 (130-400); RED BLOOD COUNT 4.83 M/mm3 (4.20-5.60); REDCELL DISTRIBUTION WIDTH-CV 13.7 % (11.5-14.5)
[2017-04-29 11:44] LABS: CALCIUM 9.7 mg/dL (8.4-10.2); CREATININE, serum 0.97 mg/dL (0.66-1.25); POTASSIUM 4.7 mmol/L (3.4-5.0)
== END ==
LOC: COL.LAB 11:16
DX: Z01.812 Encounter for preprocedural laboratory examination (principal); Q21.1 Atrial septal defect

== ENCOUNTER → 2017-04-29 | Outpatient (CLI) | payer MEDICAID | LOC: MHCPAIN 10:13 | DX: G89.29 Other chronic pain (principal); M50.122 Cervical disc disorder at C5-C6 level with radiculopathy; M54.81 Occipital neuralgia; R51 Headache; M96.1 Postlaminectomy syndrome, not elsewhere classified; Z87.891 Personal history of nicotine dependence | CPT/HCPCS: G0463 ==

== ENCOUNTER 2017-05-27 14:18 | Emergency (ER) | payer MEDICAID ==
[~2017-05-27] VITALS: Ht 182.9 cm; Wt 118.2 kg
[2017-05-27 14:23] VITALS: TEMP 98.3
[2017-05-27] MEDS ORDERED: ASPIRIN 81M81 MG/TA2 PO (14:27)
[2017-05-27 14:40] LABS: BASO # 0.1 (0.0-0.2); BASO % 0.9 % (0.0-2.0); EOS # 0.4 (0.0-0.7); EOS % 6.4 % (0-4.0); GRAN % 43.1 % (42.2-75.2); HEMATOCRIT 42.3 % (42.0-52.0); HEMOGLOBIN 14.4 g/dl (13.5-18.0); LYMPH # 2.8 (1.2-3.4); LYMPH % 40.6 % (20.0-51.0); MEAN CELL VOLUME 87 fl (80.0-100.0); MEAN CORPUSCULAR HEMOGLOBIN 30 pg (27.0-31.0); MEAN CORPUSCULAR HGB CONC 34 g/dl (33.0-37.0); MEAN PLATELET VOLUME 9.7 fl (7.4-10.4); MONO # 0.6 (0.1-0.6); MONO % 8.9 % (1.7-9.3); PLATELET COUNT 308 K/mm3 (130-400); RED BLOOD COUNT 4.86 M/mm3 (4.20-5.60); REDCELL DISTRIBUTION WIDTH-CV 13.4 % (11.5-14.5)
[2017-05-27 14:44] LABS: INR 0.9 (0.8-3.0); PROTHROMBIN TIME 10.5 SECONDS (9.7-12.8)
[2017-05-27 15:13] LABS: ALANINE AMINOTRANSFERASE 56 U/L (21-72); ALBUMIN 4.3 gm/dL (3.5-5.0); ALKALINE PHOSPHATASE 87 U/L (50-136); ANION GAP 7 mmol/L (7-16); AST,SGOT 29 U/L (15-37); BILIRUBIN,TOTAL 0.2 mg/dL (0.0-1.0); BLOOD UREA NITROGEN 13 mg/dL (9-20); CALCIUM 9.1 mg/dL (8.4-10.2); CARBON DIOXIDE 24 mmol/L (22-30); CHLORIDE 106 mmol/L (98-107); CREATININE, serum 0.97 mg/dL (0.66-1.25); GLUCOSE 107 mg/dL (74-106); POTASSIUM 4.2 mmol/L (3.4-5.0); SODIUM 137 mmol/L (137-145); TOTAL PROTEIN 7.4 gm/dL (6.4-8.2)
[2017-05-27 15:15] LABS: PARTIAL THROMBOPLASTIN TIME 29.9 SECONDS (26.0-37.0)
[2017-05-27 15:28] LABS: TROPONIN-I < 0.012 ng/mL (0.000-0.034)
[2017-05-27 16:46] VITALS: BP 137/84; PULSE 86
== END 2017-05-27 16:47 | disposition home or self-care (01) ==
LOC: COL.ER 14:18
PROVIDERS: Emergency Medicine
DX: R07.89 Other chest pain (principal); R06.02 Shortness of breath; Q21.1 Atrial septal defect; G89.29 Other chronic pain; M54.2 Cervicalgia; M54.9 Dorsalgia, unspecified; E66.9 Obesity, unspecified; Z68.35 Body mass index [BMI] 35.0-35.9, adult; Z98.890 Other specified postprocedural states; Z79.02 Long term (current) use of antithrombotics/antiplatelets; Z79.82 Long term (current) use of aspirin
CPT/HCPCS: J1885; J2270

== ENCOUNTER → 2017-06-17 | Outpatient (CLI) | payer MEDICAID ==
[~2017-06-17] MED LIST changes: +ASPIRIN 81M81 MG/TA2 PO
== END ==
LOC: MHCPAIN 14:03
DX: G89.29 Other chronic pain (principal); M50.90 Cervical disc disorder, unspecified, unspecified cervical region; M54.12 Radiculopathy, cervical region; R51 Headache; M96.1 Postlaminectomy syndrome, not elsewhere classified
CPT/HCPCS: G0463

== ENCOUNTER → 2017-07-01 | Outpatient (CLI) | payer MEDICAID | LOC: MHCPAIN 12:20 | DX: G89.29 Other chronic pain (principal); M50.10 Cervical disc disorder with radiculopathy, unspecified cervical region; M54.81 Occipital neuralgia | CPT/HCPCS: G0463 ==

== ENCOUNTER 2017-07-08 11:17 | Emergency (ER) | payer MEDICAID ==
[~2017-07-08] VITALS: Ht 182.9 cm; Wt 118.2 kg
[2017-07-08 11:33] VITALS: TEMP 98.5
[2017-07-08 11:41] LABS: BASO % 0.8 % (0.0-2.0); EOS # 0.3 (0.0-0.7); EOS % 5.7 % (0-4.0); GRAN # 2.3 (1.4-6.5); GRAN % 45.1 % (42.2-75.2); HEMATOCRIT 43.4 % (42.0-52.0); HEMOGLOBIN 14.4 g/dl (13.5-18.0); LYMPH % 39.8 % (20.0-51.0); MEAN CELL VOLUME 90 fl (80.0-100.0); MEAN CORPUSCULAR HEMOGLOBIN 30 pg (27.0-31.0); MEAN CORPUSCULAR HGB CONC 33 g/dl (33.0-37.0); MEAN PLATELET VOLUME 9.8 fl (7.4-10.4); MONO # 0.4 (0.1-0.6); MONO % 8.4 % (1.7-9.3); PLATELET COUNT 220 K/mm3 (130-400); RED BLOOD COUNT 4.83 M/mm3 (4.20-5.60); REDCELL DISTRIBUTION WIDTH-CV 13.4 % (11.5-14.5)
[2017-07-08 11:47] LABS: INR 0.9 (0.8-3.0); PROTHROMBIN TIME 10.1 SECONDS (9.7-12.8)
[2017-07-08 11:48] LABS: ALANINE AMINOTRANSFERASE 48 U/L (21-72); ALBUMIN 3.9 gm/dL (3.5-5.0); ALKALINE PHOSPHATASE 98 U/L (50-136); ANION GAP 12 mmol/L (7-16); AST,SGOT 29 U/L (15-37); BILIRUBIN,TOTAL 0.3 mg/dL (0.0-1.0); BLOOD UREA NITROGEN 11 mg/dL (9-20); CALCIUM 8.9 mg/dL (8.4-10.2); CARBON DIOXIDE 24 mmol/L (22-30); CHLORIDE 104 mmol/L (98-107); CREATININE, serum 1.03 mg/dL (0.66-1.25); GLUCOSE 112 mg/dL (74-106); LIPASE 132 U/L (23-300); SODIUM 141 mmol/L (137-145); TOTAL PROTEIN 7.6 gm/dL (6.4-8.2)
[2017-07-08 11:49] LABS: PARTIAL THROMBOPLASTIN TIME 33.2 SECONDS (26.0-37.0)
[2017-07-08 12:19] LABS: TROPONIN-I < 0.012 ng/mL (0.000-0.034)
[2017-07-08 16:07] VITALS: BP 120/89; PULSE 61
== END 2017-07-08 16:07 | disposition home or self-care (01) ==
LOC: COL.ER 11:17
PROVIDERS: Emergency Medicine
DX: R07.89 Other chest pain (principal); F32.9 Major depressive disorder, single episode, unspecified; H54.62 Unqualified visual loss, left eye, normal vision right eye; Z86.79 Personal history of other diseases of the circulatory system; Z88.8 Allergy status to other drugs, medicaments and biological substances; Z98.890 Other specified postprocedural states; Z79.02 Long term (current) use of antithrombotics/antiplatelets; Z79.82 Long term (current) use of aspirin
CPT/HCPCS: J1885; J2270

== ENCOUNTER → 2017-08-21 | Outpatient (CLI) | payer MEDICAID ==
[2017-08-21 11:14] LABS: ALBUMIN 4.3 gm/dL (3.5-5.0); BILIRUBIN,TOTAL 0.6 mg/dL (0.0-1.0); CALCIUM 9.5 mg/dL (8.4-10.2); CREATININE, serum 1.13 mg/dL (0.66-1.25); POTASSIUM 4.9 mmol/L (3.4-5.0); TOTAL PROTEIN 8.5 gm/dL (6.4-8.2)
== END ==
LOC: COL.LAB 10:29
PROVIDERS: Anesthesiology Pain Medicine
DX: Z51.81 Encounter for therapeutic drug level monitoring (principal)

== ENCOUNTER → 2017-08-21 | Outpatient (CLI) | payer MEDICAID | LOC: MHCPAIN 09:44 | DX: G89.29 Other chronic pain (principal); M50.90 Cervical disc disorder, unspecified, unspecified cervical region; M54.12 Radiculopathy, cervical region; M54.81 Occipital neuralgia; R51 Headache; M96.1 Postlaminectomy syndrome, not elsewhere classified | CPT/HCPCS: G0463 ==

== ENCOUNTER 2017-09-19 06:58 | Emergency (ER) | payer MEDICAID ==
[~2017-09-19] VITALS: Ht 182.9 cm; Wt 118.2 kg
[2017-09-19 07:02] VITALS: BP 144/93; TEMP 98.4
[2017-09-19] MEDS ORDERED: PERCOCET 325 MG1 TAB PO (07:12)
[2017-09-19] MEDS ORDERED: FLEXERIL 1010 MG/TAB PO (08:54)
[2017-09-19 10:28] VITALS: PULSE 75
== END 2017-09-19 10:29 | disposition home or self-care (01) ==
LOC: COL.ER 06:58
DX: G89.29 Other chronic pain (principal); M54.5 Low back pain; I10 Essential (primary) hypertension; I25.10 Atherosclerotic heart disease of native coronary artery without angina pectoris; F32.9 Major depressive disorder, single episode, unspecified; Z87.891 Personal history of nicotine dependence; Z79.82 Long term (current) use of aspirin; Z79.02 Long term (current) use of antithrombotics/antiplatelets
CPT/HCPCS: J1170; J2360

== ENCOUNTER 2017-11-05 13:10 | Day surgery (SDC) | payer MEDICAID ==
[2017-11-05] VITALS (7 sets, daily range): BP systolic 129–139; BP diastolic 63–88; PULSE 73–86; TEMP 97.6–98.3
[~2017-11-05] VITALS: Ht 182.9 cm; Wt 120.5 kg
[~2017-11-05 13:10] MED LIST changes: +FLEXERIL 1010 MG/TAB PO; +PERCOCET 325 MG1 TAB PO
[2017-11-05 13:45] LABS: HEMATOCRIT 45.7 % (42.0-52.0); HEMOGLOBIN 15.2 g/dl (13.5-18.0); MEAN CELL VOLUME 88 fl (80.0-100.0); MEAN CORPUSCULAR HEMOGLOBIN 29 pg (27.0-31.0); MEAN CORPUSCULAR HGB CONC 33 g/dl (33.0-37.0); MEAN PLATELET VOLUME 9.4 fl (7.4-10.4); PLATELET COUNT 339 K/mm3 (130-400); RED BLOOD COUNT 5.18 M/mm3 (4.20-5.60); REDCELL DISTRIBUTION WIDTH-CV 13.5 % (11.5-14.5)
[2017-11-05 13:56] LABS: CALCIUM 9.4 mg/dL (8.4-10.2); CREATININE, serum 0.99 mg/dL (0.66-1.25); POTASSIUM 4.3 mmol/L (3.4-5.0)
[2017-11-05] MEDS ORDERED: COLACE 100100 MG/CAP PO (16:35)
[2017-11-05] MEDS ORDERED: METAMUCIL3.4 GM/DOS PO (16:37)
[2017-11-05] MEDS ORDERED: AMOXICILLIN 8751 TAB PO (16:48)
[2017-11-05] MEDS ORDERED: LIDO2%JEL30 RC (16:48)
== END 2017-11-05 19:58 | disposition home or self-care (01) ==
LOC: SDCO 13:10 → SURG 13:20 → SDCO 14:15
PROVIDERS: Surgery
DX: K64.8 Other hemorrhoids (principal); K64.2 Third degree hemorrhoids; Z79.82 Long term (current) use of aspirin; Z79.02 Long term (current) use of antithrombotics/antiplatelets; I10 Essential (primary) hypertension; Q21.1 Atrial septal defect; F41.9 Anxiety disorder, unspecified; F32.9 Major depressive disorder, single episode, unspecified
CPT/HCPCS: OP; J0690; J1100; J1885; J2405; J2704; J3010

== ENCOUNTER → 2017-11-10 | Outpatient (CLI) | payer MEDICAID ==
[~2017-11-10] MED LIST changes: +AMOXICILLIN 8751 TAB PO; +COLACE 100100 MG/CAP PO; +LIDO2%JEL30 RC; +METAMUCIL3.4 GM/DOS PO
== END ==
LOC: MHCPAIN 09:33
DX: G89.29 Other chronic pain (principal); M50.90 Cervical disc disorder, unspecified, unspecified cervical region; M54.12 Radiculopathy, cervical region; M54.81 Occipital neuralgia; R51 Headache
CPT/HCPCS: G0463

== ENCOUNTER → 2017-11-16 | Outpatient (CLI) | payer MEDICAID | LOC: ZCOL.LAB 16:07 | DX: K61.0 Anal abscess (principal) ==

== ENCOUNTER → 2017-12-11 | Outpatient (CLI) | payer MEDICAID | LOC: MHCPAIN 10:25 | DX: G89.29 Other chronic pain (principal); M50.90 Cervical disc disorder, unspecified, unspecified cervical region; M54.12 Radiculopathy, cervical region; M54.81 Occipital neuralgia; R51 Headache | CPT/HCPCS: G0463 ==

== ENCOUNTER → 2018-02-09 | Outpatient (CLI) | payer MEDICAID | LOC: MHCPAIN 10:15 | DX: G89.29 Other chronic pain (principal); M50.90 Cervical disc disorder, unspecified, unspecified cervical region; M54.12 Radiculopathy, cervical region; M54.81 Occipital neuralgia; R51 Headache | CPT/HCPCS: G0463 ==

== ENCOUNTER 2018-03-20 06:53 | Emergency (ER) | payer MEDICAID ==
[~2018-03-20] VITALS: Ht 182.9 cm; Wt 120.5 kg
[2018-03-20 06:59] VITALS: TEMP 96.9
[2018-03-20 07:13] LABS: BASO % 0.8 % (0.0-2.0); EOS # 0.3 (0.0-0.7); EOS % 5.8 % (0-4.0); GRAN # 2.2 (1.4-6.5); GRAN % 43.7 % (42.2-75.2); HEMATOCRIT 43.2 % (42.0-52.0); HEMOGLOBIN 14.4 g/dl (13.5-18.0); LYMPH % 39.9 % (20.0-51.0); MEAN CELL VOLUME 90 fl (80.0-100.0); MEAN CORPUSCULAR HEMOGLOBIN 30 pg (27.0-31.0); MEAN CORPUSCULAR HGB CONC 33 g/dl (33.0-37.0); MEAN PLATELET VOLUME 9.6 fl (7.4-10.4); MONO # 0.5 (0.1-0.6); MONO % 9.8 % (1.7-9.3); PLATELET COUNT 237 K/mm3 (130-400); RED BLOOD COUNT 4.81 M/mm3 (4.20-5.60); REDCELL DISTRIBUTION WIDTH-CV 13.9 % (11.5-14.5)
[2018-03-20 07:22] LABS: ALANINE AMINOTRANSFERASE 67 U/L (21-72); ALBUMIN 4.2 gm/dL (3.5-5.0); ALKALINE PHOSPHATASE 82 U/L (50-136); ANION GAP 7 mmol/L (7-16); AST,SGOT 39 U/L (15-37); BILIRUBIN,TOTAL 0.2 mg/dL (0.0-1.0); BLOOD UREA NITROGEN 17 mg/dL (9-20); CALCIUM 9.1 mg/dL (8.4-10.2); CARBON DIOXIDE 26 mmol/L (22-30); CHLORIDE 107 mmol/L (98-107); CREATININE, serum 0.91 mg/dL (0.66-1.25); GLUCOSE 108 mg/dL (74-106); LIPASE 108 U/L (23-300); POTASSIUM 4.4 mmol/L (3.4-5.0); SODIUM 141 mmol/L (137-145); TOTAL PROTEIN 7.2 gm/dL (6.4-8.2)
[2018-03-20 07:39] LABS: TROPONIN-I < 0.012 ng/mL (0.000-0.034)
[2018-03-20] MEDS ORDERED: EFFEXOR-XR150 MG PO (08:50)
[2018-03-20] MEDS ORDERED: VALIUM 10MG10 MG/TAB PO (08:51)
[2018-03-20] MEDS ORDERED: FLEXERIL 1010 MG/TAB PO (08:51)
[2018-03-20 10:52] VITALS: BP 122/67; PULSE 63
[2018-03-20] MEDS ORDERED: NAPROXEN 3375 MG/TAB PO (10:56)
== END 2018-03-20 11:01 | disposition home or self-care (01) ==
LOC: COL.ER 06:53
PROVIDERS: Emergency Medicine
DX: R07.9 Chest pain, unspecified (principal); Z79.82 Long term (current) use of aspirin
CPT/HCPCS: J1170; J1200; J1885; J2930; J7030; Q9967

== ENCOUNTER → 2018-04-05 | Outpatient (CLI) | payer MEDICAID, OTHER ==
[~2018-04-05] MED LIST changes: +EFFEXOR-XR150 MG PO; +NAPROXEN 3375 MG/TAB PO; +VALIUM 10MG10 MG/TAB PO
== END ==
LOC: MHCPAIN 10:18
DX: G89.29 Other chronic pain (principal); M54.12 Radiculopathy, cervical region; M54.81 Occipital neuralgia; R51 Headache; M47.812 Spondylosis without myelopathy or radiculopathy, cervical region
CPT/HCPCS: G0463

== ENCOUNTER → 2018-06-01 | Outpatient (CLI) | payer OTHER | LOC: MHCPAIN 09:43 | DX: G89.29 Other chronic pain (principal); M47.817 Spondylosis without myelopathy or radiculopathy, lumbosacral region; M54.16 Radiculopathy, lumbar region; M53.3 Sacrococcygeal disorders, not elsewhere classified; M96.1 Postlaminectomy syndrome, not elsewhere classified; M54.81 Occipital neuralgia; M50.90 Cervical disc disorder, unspecified, unspecified cervical region; M54.12 Radiculopathy, cervical region; R51 Headache | CPT/HCPCS: G0463 ==

== ENCOUNTER → 2018-07-26 | Outpatient (CLI) | payer OTHER | LOC: MHCPAIN 10:05 | DX: G89.29 Other chronic pain (principal); M47.817 Spondylosis without myelopathy or radiculopathy, lumbosacral region; M54.16 Radiculopathy, lumbar region; M53.3 Sacrococcygeal disorders, not elsewhere classified; M96.1 Postlaminectomy syndrome, not elsewhere classified; M54.81 Occipital neuralgia; M50.90 Cervical disc disorder, unspecified, unspecified cervical region; M54.12 Radiculopathy, cervical region; R51 Headache | CPT/HCPCS: G0463 ==

== ENCOUNTER → 2018-09-21 | Outpatient (CLI) | payer OTHER | LOC: MHCPAIN 11:10 | DX: G89.29 Other chronic pain (principal); M47.817 Spondylosis without myelopathy or radiculopathy, lumbosacral region; M54.16 Radiculopathy, lumbar region; M53.3 Sacrococcygeal disorders, not elsewhere classified; M96.1 Postlaminectomy syndrome, not elsewhere classified; M54.81 Occipital neuralgia; M50.90 Cervical disc disorder, unspecified, unspecified cervical region; M54.12 Radiculopathy, cervical region; R51 Headache | CPT/HCPCS: G0463 ==

== ENCOUNTER 2018-10-30 19:40 | Emergency (ER) | payer SELFPAY ==
[~2018-10-30] VITALS: Ht 182.9 cm; Wt 118.2 kg
[2018-10-30 19:51] VITALS: BP 146/81; TEMP 97.7
[2018-10-30] MEDS ORDERED: BACTRIM DS 8001 TAB PO (20:08)
[2018-10-30] MEDS ORDERED: CEPHALEXIN500 M1 PO (20:08)
[2018-10-30 20:21] VITALS: PULSE 90
== END 2018-10-30 20:23 | disposition home or self-care (01) ==
LOC: COL.ER 19:40
DX: L03.113 Cellulitis of right upper limb (principal); Z79.82 Long term (current) use of aspirin; Z79.02 Long term (current) use of antithrombotics/antiplatelets

== ENCOUNTER → 2018-11-16 | Outpatient (CLI) | payer OTHER ==
[~2018-11-16] MED LIST changes: +BACTRIM DS 8001 TAB PO; +CEPHALEXIN500 M1 PO
== END ==
LOC: MHCPAIN 10:00
DX: G89.29 Other chronic pain (principal); M47.817 Spondylosis without myelopathy or radiculopathy, lumbosacral region; M54.16 Radiculopathy, lumbar region; M53.3 Sacrococcygeal disorders, not elsewhere classified; M96.1 Postlaminectomy syndrome, not elsewhere classified; M54.81 Occipital neuralgia; M50.90 Cervical disc disorder, unspecified, unspecified cervical region; M54.12 Radiculopathy, cervical region
CPT/HCPCS: G0463

== ENCOUNTER 2019-02-10 11:03 | Emergency (ER) | payer OTHER ==
[~2019-02-10] VITALS: Ht 182.9 cm; Wt 113.6 kg
[2019-02-10 11:10] VITALS: BP 142/78; TEMP 97
[2019-02-10] MEDS ORDERED: PREDNISONE20 MG PO (11:36)
[2019-02-10] MEDS ORDERED: FLEXERIL 1010 MG/TAB PO (11:36)
[2019-02-10] MEDS ORDERED: LIDODERM 5% PATC1 EA TP (11:36)
[2019-02-10 12:50] VITALS: PULSE 81
== END 2019-02-10 12:55 | disposition home or self-care (01) ==
LOC: COL.ER 11:03
DX: G89.29 Other chronic pain (principal); M54.5 Low back pain; Z79.82 Long term (current) use of aspirin
CPT/HCPCS: J1170; J1885; J2550; J8540

== ENCOUNTER 2019-02-12 09:44 | Emergency (ER) | payer OTHER ==
[~2019-02-12] VITALS: Ht 182.9 cm; Wt 113.6 kg
[~2019-02-12 09:44] MED LIST changes: +LIDODERM 5% PATC1 EA TP; +PREDNISONE20 MG PO
[2019-02-12 09:47] VITALS: TEMP 97.4
[2019-02-12 12:35] VITALS: BP 128/78; PULSE 62
[2019-02-12] MEDS ORDERED: LIDODERM 5% PATC1 EA TP (12:40)
== END 2019-02-12 12:50 | disposition home or self-care (01) ==
LOC: COL.ER 09:44
DX: M54.5 Low back pain (principal); Z79.82 Long term (current) use of aspirin
CPT/HCPCS: J1170; J1885; J7030

== ENCOUNTER 2019-09-10 11:17 | Emergency (ER) | payer BC ==
[~2019-09-10] VITALS: Ht 182.9 cm; Wt 115.9 kg
[2019-09-10 11:23] VITALS: BP 113/70; TEMP 98
[2019-09-10 12:34] VITALS: PULSE 64
== END 2019-09-10 12:32 | disposition home or self-care (01) ==
LOC: COL.ER 11:17
DX: S70.361A Insect bite (nonvenomous), right thigh, initial encounter (principal); Z79.52 Long term (current) use of systemic steroids; Z79.82 Long term (current) use of aspirin; W57.XXXA Bitten or stung by nonvenomous insect and other nonvenomous arthropods, initial encounter

== ENCOUNTER 2020-05-14 05:04 | Emergency (ER) | payer OTHER ==
[~2020-05-14] VITALS: Ht 182.9 cm; Wt 109.1 kg
[~2020-05-14 05:04] MED LIST changes: +COLCRYS0.6 MG PO; +PEPCID 20MG TAB20 MG PO; +RESTORIL 1515 MG/CAP PO
[2020-05-14 05:13] VITALS: TEMP 98
[2020-05-14 05:29] LABS: BASO # 0.1 (0.0-0.2); BASO % 0.9 % (0.0-2.0); EOS # 0.8 (0.0-0.7); EOS % 11.8 % (0-4.0); GRAN # 2.7 (1.4-6.5); GRAN % 42.7 % (42.2-75.2); HEMATOCRIT 42.8 % (42.0-52.0); HEMOGLOBIN 14.1 g/dl (13.5-18.0); LYMPH # 2.3 (1.2-3.4); LYMPH % 36.1 % (20.0-51.0); MEAN CELL VOLUME 89 fl (80.0-100.0); MEAN CORPUSCULAR HEMOGLOBIN 29 pg (27.0-31.0); MEAN CORPUSCULAR HGB CONC 33 g/dl (33.0-37.0); MEAN PLATELET VOLUME 9.5 fl (7.4-10.4); MONO # 0.5 (0.1-0.6); MONO % 8.3 % (1.7-9.3); PLATELET COUNT 269 K/mm3 (130-400); RED BLOOD COUNT 4.79 M/mm3 (4.20-5.60); REDCELL DISTRIBUTION WIDTH-CV 13.3 % (11.5-14.5)
[2020-05-14 05:39] LABS: ANION GAP 7 mmol/L (7-16); BLOOD UREA NITROGEN 12 mg/dL (9-20); CARBON DIOXIDE 25 mmol/L (22-30); CHLORIDE 107 mmol/L (98-107); CREATININE, serum 0.96 (0.66-1.25); GLUCOSE 111 mg/dL (74-106); POTASSIUM 4.2 mmol/L (3.4-5.0); SODIUM 139 mmol/L (137-145)
[2020-05-14 05:53] LABS: TROPONIN-I < 0.012 ng/mL (0.000-0.035)
[2020-05-14 09:12] VITALS: BP 113/71; PULSE 65
[2020-05-14] MEDS ORDERED: PREDNISONE20 MG PO (09:27)
[2020-05-14] MEDS ORDERED: OMNICEF 300MG300 MG PO (09:27)
[2020-05-14] MEDS ORDERED: NORCO 325 MG-51 TAB PO (09:29)
== END 2020-05-14 09:38 | disposition home or self-care (01) ==
LOC: COL.ER 05:04
PROVIDERS: Emergency Medicine
DX: R07.89 Other chest pain (principal); G89.29 Other chronic pain; M54.9 Dorsalgia, unspecified; Z87.442 Personal history of urinary calculi; Z88.1 Allergy status to other antibiotic agents; Z87.891 Personal history of nicotine dependence; Z79.82 Long term (current) use of aspirin
CPT/HCPCS: J0696; J1885

== ENCOUNTER 2020-06-03 07:42 | Emergency (ER) | payer OTHER ==
[~2020-06-03] VITALS: Ht 182.9 cm; Wt 109.1 kg
[~2020-06-03 07:42] MED LIST changes: +OMNICEF 300MG300 MG PO
[2020-06-03 07:54] VITALS: TEMP 97.4
[2020-06-03 08:38] LABS: BASO # 0.1 (0.0-0.2); EOS # 0.5 (0.0-0.7); EOS % 9.9 % (0-4.0); GRAN # 1.6 (1.4-6.5); GRAN % 30.6 % (42.2-75.2); HEMATOCRIT 39.8 % (42.0-52.0); HEMOGLOBIN 12.9 g/dl (13.5-18.0); LYMPH # 2.6 (1.2-3.4); LYMPH % 50.1 % (20.0-51.0); MEAN CELL VOLUME 90 fl (80.0-100.0); MEAN CORPUSCULAR HEMOGLOBIN 29 pg (27.0-31.0); MEAN CORPUSCULAR HGB CONC 32 g/dl (33.0-37.0); MEAN PLATELET VOLUME 9.7 fl (7.4-10.4); MONO # 0.4 (0.1-0.6); MONO % 8.2 % (1.7-9.3); PLATELET COUNT 225 K/mm3 (130-400); RED BLOOD COUNT 4.41 M/mm3 (4.20-5.60); REDCELL DISTRIBUTION WIDTH-CV 13.3 % (11.5-14.5)
[2020-06-03 08:47] LABS: ALANINE AMINOTRANSFERASE 24 U/L (4-49); ALBUMIN 3.7 gm/dL (3.5-5.0); ALKALINE PHOSPHATASE 70 U/L (50-136); ANION GAP 7 mmol/L (7-16); AST,SGOT 27 U/L (15-37); BILIRUBIN,TOTAL 0.3 mg/dL (0.0-1.0); BLOOD UREA NITROGEN 16 mg/dL (9-20); CALCIUM 8.6 mg/dL (8.4-10.2); CARBON DIOXIDE 24 mmol/L (22-30); CHLORIDE 108 mmol/L (98-107); CREATININE, serum 1.01 (0.66-1.25); GLUCOSE 104 mg/dL (74-106); POTASSIUM 4.2 mmol/L (3.4-5.0); SODIUM 139 mmol/L (137-145); TOTAL PROTEIN 6.5 gm/dL (6.4-8.2)
[2020-06-03 08:59] LABS: TROPONIN-I < 0.012 ng/mL (0.000-0.035)
[2020-06-03] MEDS ORDERED: CEPHALEXIN500 M1 PO (09:29)
[2020-06-03] MEDS ORDERED: BACTRIM DS 8001 TAB PO (09:29)
[2020-06-03 09:46] VITALS: BP 140/80; PULSE 61
== END 2020-06-03 09:46 | disposition home or self-care (01) ==
LOC: COL.ER 07:42
PROVIDERS: Emergency Medicine
DX: L05.01 Pilonidal cyst with abscess (principal); R07.9 Chest pain, unspecified; Z88.1 Allergy status to other antibiotic agents; Z87.891 Personal history of nicotine dependence; Z79.52 Long term (current) use of systemic steroids; Z79.82 Long term (current) use of aspirin
CPT/HCPCS: J1170; J7030

== ENCOUNTER 2020-06-06 15:26 | Emergency (ER) | payer OTHER ==
[~2020-06-06] VITALS: Ht 182.9 cm; Wt 109.1 kg
[2020-06-06 15:35] VITALS: TEMP 97.8
[2020-06-06 16:02] LABS: BASO # 0.1 (0.0-0.2); BASO % 0.9 % (0.0-2.0); EOS # 0.7 (0.0-0.7); EOS % 11.2 % (0-4.0); GRAN # 2.6 (1.4-6.5); GRAN % 40.9 % (42.2-75.2); HEMATOCRIT 44.4 % (42.0-52.0); HEMOGLOBIN 14.6 g/dl (13.5-18.0); LYMPH # 2.5 (1.2-3.4); LYMPH % 39.5 % (20.0-51.0); MEAN CELL VOLUME 90 fl (80.0-100.0); MEAN CORPUSCULAR HEMOGLOBIN 30 pg (27.0-31.0); MEAN CORPUSCULAR HGB CONC 33 g/dl (33.0-37.0); MEAN PLATELET VOLUME 9.5 fl (7.4-10.4); MONO # 0.5 (0.1-0.6); MONO % 7.3 % (1.7-9.3); PLATELET COUNT 273 K/mm3 (130-400); RED BLOOD COUNT 4.94 M/mm3 (4.20-5.60); REDCELL DISTRIBUTION WIDTH-CV 13.2 % (11.5-14.5)
[2020-06-06 16:05] LABS: LIPASE 58 U/L (23-300)
[2020-06-06 16:41] LABS: TROPONIN-I < 0.012 ng/mL (0.000-0.035)
[2020-06-06 17:21] LABS: ALBUMIN 4.1 gm/dL (3.5-5.0); BILIRUBIN,TOTAL 0.1 mg/dL (0.0-1.0); CALCIUM 9.5 mg/dL (8.4-10.2); CREATININE, serum 1.24 (0.66-1.25); POTASSIUM 4.4 mmol/L (3.4-5.0); TOTAL PROTEIN 7.3 gm/dL (6.4-8.2)
[2020-06-06 17:49] VITALS: BP 112/77; PULSE 60
== END 2020-06-06 17:52 | disposition home or self-care (01) ==
LOC: COL.ER 15:26
PROVIDERS: Physician Assistant
DX: R07.2 Precordial pain (principal); G89.29 Other chronic pain; Z87.891 Personal history of nicotine dependence; Z88.1 Allergy status to other antibiotic agents; Z79.52 Long term (current) use of systemic steroids; Z79.82 Long term (current) use of aspirin
CPT/HCPCS: J1885; J2765; J7030

== ENCOUNTER 2020-09-15 08:59 | Emergency (ER) | payer OTHER ==
[~2020-09-15] VITALS: Ht 182.9 cm; Wt 113.6 kg
[2020-09-15 09:19] VITALS: TEMP 97.4
[2020-09-15 09:39] LABS: BASO % 0.4 % (0.0-2.0); EOS # 0.1 (0.0-0.7); EOS % 0.8 % (0-4.0); GRAN # 6.6 (1.4-6.5); GRAN % 77.5 % (42.2-75.2); HEMATOCRIT 42.8 % (42.0-52.0); HEMOGLOBIN 13.8 g/dl (13.5-18.0); LYMPH # 1.4 (1.2-3.4); MEAN CELL VOLUME 94 fl (80.0-100.0); MEAN CORPUSCULAR HEMOGLOBIN 30 pg (27.0-31.0); MEAN CORPUSCULAR HGB CONC 32 g/dl (33.0-37.0); MONO # 0.4 (0.1-0.6); MONO % 4.2 % (1.7-9.3); PLATELET COUNT 264 K/mm3 (130-400); RED BLOOD COUNT 4.57 M/mm3 (4.20-5.60); REDCELL DISTRIBUTION WIDTH-CV 15.3 % (11.5-14.5)
[2020-09-15 09:53] LABS: ALANINE AMINOTRANSFERASE 51 U/L (4-49); ALKALINE PHOSPHATASE 61 U/L (50-136); ANION GAP 8 mmol/L (7-16); AST,SGOT 29 U/L (15-37); BILIRUBIN,TOTAL 0.3 mg/dL (0.0-1.0); BLOOD UREA NITROGEN 24 mg/dL (9-20); CALCIUM 9.3 mg/dL (8.4-10.2); CARBON DIOXIDE 26 mmol/L (22-30); CHLORIDE 104 mmol/L (98-107); CREATININE, serum 1.11 (0.66-1.25); GLUCOSE 120 mg/dL (74-106); POTASSIUM 4.7 mmol/L (3.4-5.0); SODIUM 138 mmol/L (137-145); TOTAL PROTEIN 6.7 gm/dL (6.4-8.2)
[2020-09-15 10:05] LABS: TROPONIN-I < 0.012 ng/mL (0.000-0.035)
[2020-09-15 10:55] VITALS: BP 125/74; PULSE 83
== END 2020-09-15 10:58 | disposition home or self-care (01) ==
LOC: COL.ER 08:59
PROVIDERS: Emergency Medicine
DX: R07.9 Chest pain, unspecified (principal); R51.9 Headache, unspecified; Z87.891 Personal history of nicotine dependence
CPT/HCPCS: J0780; J1100; J1200; J1885; J3475; J7120

== ENCOUNTER 2020-10-26 16:52 | Emergency (ER) | payer OTHER | END 2020-10-26 17:15 | disposition left against medical advice (07) | LOC: COL.ER 16:52 | DX: R69 Illness, unspecified (principal) ==

== ENCOUNTER 2020-11-24 08:42 | Emergency (ER) | payer OTHER ==
[~2020-11-24] VITALS: Ht 182.9 cm; Wt 122.7 kg
[2020-11-24 08:52] VITALS: TEMP 98.6
[2020-11-24 10:47] VITALS: BP 145/95; PULSE 70
== END 2020-11-24 10:40 | disposition home or self-care (01) ==
LOC: COL.ER 08:42
DX: R51.9 Headache, unspecified (principal); G93.49 Other encephalopathy; Z79.52 Long term (current) use of systemic steroids; Z79.891 Long term (current) use of opiate analgesic
CPT/HCPCS: J1200; J1885; J2550; J7030

== ENCOUNTER 2021-03-25 14:38 | Emergency (ER) | payer OTHER ==
[~2021-03-25] VITALS: Ht 182.9 cm; Wt 127.3 kg
[2021-03-25 15:02] VITALS: TEMP 98.3
[2021-03-25 16:33] LABS: BASO % 0.4 % (0.0-2.0); EOS # 0.1 K/mm3 (0.0-0.7); EOS % 1.4 % (0.0-4.0); GRAN # 3.6 K/mm3 (1.4-6.5); GRAN % 69.1 % (42.2-75.2); HEMATOCRIT 43.7 % (42.0-52.0); HEMOGLOBIN 14.5 g/dl (13.5-18.0); LYMPH # 1.1 K/mm3 (1.2-3.4); LYMPH % 21.7 % (20.0-51.0); MEAN CELL VOLUME 90 fl (80.0-100.0); MEAN CORPUSCULAR HEMOGLOBIN 30 pg (27-31); MEAN CORPUSCULAR HGB CONC 33 g/dl (33.0-37.0); MEAN PLATELET VOLUME 9.9 fl (7.4-10.4); MONO # 0.4 K/mm3 (0.1-0.6); PLATELET COUNT 192 K/mm3 (130-400); RED BLOOD COUNT 4.86 M/mm3 (4.20-5.60); REDCELL DISTRIBUTION WIDTH-CV 12.9 % (11.5-14.5)
[2021-03-25 16:51] LABS: ALANINE AMINOTRANSFERASE 58 U/L (0-55); ALBUMIN 3.7 gm/dL (3.5-5.0); ALKALINE PHOSPHATASE 82 U/L (40-150); ANION GAP 11 mmol/L (7-16); AST,SGOT 41 U/L (5-34); BILIRUBIN,TOTAL 0.4 mg/dL (0.2-1.2); BLOOD UREA NITROGEN 14 mg/dL (9-21); CALCIUM 8.7 mg/dL (8.4-10.2); CARBON DIOXIDE 26 mmol/L (22-29); CHLORIDE 104 mmol/L (98-107); CREATININE, serum 1.17 mg/dL (0.72-1.25); GLUCOSE 109 mg/dL (70-99); POTASSIUM 4.4 mmol/L (3.5-4.5); SODIUM 141 mmol/L (136-145); TOTAL PROTEIN 7.1 gm/dL (6.2-8.1)
[2021-03-25 16:56] LABS: TROPONIN-I < 0.010 ng/mL (0.00-0.033)
[2021-03-25] MEDS ORDERED: ZOFRAN ODT4 MG PO (18:13)
[2021-03-25 18:32] VITALS: BP 98/79; PULSE 79
== END 2021-03-25 18:32 | disposition home or self-care (01) ==
LOC: COL.ER 14:38
PROVIDERS: Physician Assistant
DX: U07.1 COVID-19 (principal)
CPT/HCPCS: J2405; J7030

== ENCOUNTER 2021-04-07 18:06 | Observation (INO) | payer SELFPAY ==
[~2021-04-07] VITALS: Ht 182.9 cm; Wt 126.6 kg
[2021-04-07 18:52] LABS: BASO # 0.1 K/mm3 (0.0-0.2); BASO % 0.8 % (0.0-2.0); EOS # 0.4 K/mm3 (0.0-0.7); EOS % 3.6 % (0.0-4.0); GRAN # 4.8 K/mm3 (1.4-6.5); GRAN % 50.2 % (42.2-75.2); HEMATOCRIT 44.9 % (42.0-52.0); HEMOGLOBIN 15.2 g/dl (13.5-18.0); LYMPH # 3.2 K/mm3 (1.2-3.4); LYMPH % 33.6 % (20.0-51.0); MEAN CELL VOLUME 87 fl (80.0-100.0); MEAN CORPUSCULAR HEMOGLOBIN 30 pg (27-31); MEAN CORPUSCULAR HGB CONC 34 g/dl (33.0-37.0); MEAN PLATELET VOLUME 9.6 fl (7.4-10.4); MONO # 1.1 K/mm3 (0.1-0.6); MONO % 11.2 % (1.7-9.3); PLATELET COUNT 583 K/mm3 (130-400); RED BLOOD COUNT 5.16 M/mm3 (4.20-5.60); REDCELL DISTRIBUTION WIDTH-CV 12.7 % (11.5-14.5)
[2021-04-07 19:10] LABS: ALBUMIN 3.9 gm/dL (3.5-5.0); BILIRUBIN,TOTAL 0.5 mg/dL (0.2-1.2); CALCIUM 9.6 mg/dL (8.4-10.2); CREATININE, serum 1.17 mg/dL (0.72-1.25); POTASSIUM 4.3 mmol/L (3.5-4.5); TOTAL PROTEIN 7.7 gm/dL (6.2-8.1)
[2021-04-07 19:24] LABS: COLLECTION METHOD CLEAN CATCH
[2021-04-07 19:37] LABS: MUCOUS Present (NOT PRESENT); PH 5 (5-8); SQUAMOUS EPITHELIAL 0-2 /hpf (0-10); URINE APPEARANCE Hazy (CLEAR/HAZY); URINE BACTERIA None Seen /hpf (NONE SEEN); URINE BILIRUBIN Negative (NEGATIVE); URINE BLOOD 2+ (NEGATIVE); URINE CALCIUM OXALATE CRYSTAL Present (NOT PRESENT); URINE COLOR Amber (YELLOW); URINE GLUCOSE Negative (NEGATIVE); URINE KETONE Trace (NEGATIVE); URINE LEUKOCYTE ESTERASE Negative (NEGATIVE); URINE NITRATE Negative (NEGATIVE); URINE PROTEIN(semi-quant) 1+ (NEGATIVE); URINE RBC >50 /hpf (0-2)
--- NOTE | 2021-04-08 10:15 | NUR ---
Patient arrived from ED. Report recieved from ED RN. Patient escorted into bay 6. Patient states pain is currently tolerable. Patient is alert and oriented x4. States he has some blurry vision that is currently being worked up at . Lung sounds diminshed, abdomen obese in appearance with bowel sounds active and audible. Heart tones s1s2. IV infusing into right hand. Patient's arrived and escorted into room. Patient sitting comfortably in bed with call light within reach.
[2021-04-08 10:55] VITALS: BP 124/76; PULSE 77; TEMP 98.3
--- NOTE | 2021-04-08 13:00 | NUR ---
Patient stating he is having severe pain to LLQ and left flank area. Juan Maurer CRNA notified and orders recieved.
[2021-04-08 15:20] VITALS: BP 146/72; PULSE 94; TEMP 98.3
--- NOTE | 2021-04-08 15:20 | NUR ---
Patient arrived back into bay 6 from PACU. Patient's at bedside. Patient is alert and awake rating pain 2/10 to Left flank/left lower quaderant area. Patient requesting water and blueberry muffin. Vital signs stable.
[2021-04-08 15:35] VITALS: BP 137/76; PULSE 87
--- NOTE | 2021-04-08 15:35 | NUR ---
Patient tolerated food and drink with no complaint of nausea. Patient states pain is tolarable. Vital signs stable. Patient requesting to use restroom at this time. Patient went to the restroom with assistance of Lori significant other.
--- NOTE | 2021-04-08 15:45 | NUR ---
Patient noted blood in urine when voiding. Educated patient that small amout is typical 1-2 days after procedure but to notify Dr. Mcclure's office is bleeding becomes severe, passing clots, unable to voide, or if continuing to have blood in urine after 2+ days.
[2021-04-08 15:50] VITALS: BP 135/78; PULSE 94
--- NOTE | 2021-04-08 15:50 | NUR ---
Patient tolerated food and drink, voided successfully, denies nausea and states pain is tolerable. Patient got dressed with assistance of Lori. Went through discharge instructions with patient and . Questions answered. Both verbalized understanding to education. Patient's follow up appointment made. IV on right hand removed with no complications as well as IV in left AC. Patient escorted to emergency department entrance via wheelchair with along side. Patient got into personal vehicle unassisted and left in the care of his .
== END 2021-04-08 15:55 | disposition home or self-care (01) ==
LOC: COL.ER 18:06 → SURG 23:19
PROVIDERS: Emergency Medicine; ADMIT Urology
DX: N20.1 Calculus of ureter (principal); G43.909 Migraine, unspecified, not intractable, without status migrainosus; G89.29 Other chronic pain; M54.9 Dorsalgia, unspecified; G62.9 Polyneuropathy, unspecified; F32.A Depression, unspecified; Z79.82 Long term (current) use of aspirin; Z79.899 Other long term (current) drug therapy; Z79.891 Long term (current) use of opiate analgesic
CPT/HCPCS: C1769; C2617; G0378; J0690; J1100; J1170; J1885; J2270; J2405; J2704; J3010; J7030

== ENCOUNTER 2021-07-06 10:16 | Emergency (ER) | payer SELFPAY ==
[~2021-07-06] VITALS: Ht 182.9 cm; Wt 127.3 kg
[2021-07-06 10:21] VITALS: TEMP 98.7
[2021-07-06 11:14] LABS: BASO % 0.5 % (0.0-2.0); EOS # 0.1 K/mm3 (0.0-0.7); EOS % 1.6 % (0.0-4.0); GRAN # 5.6 K/mm3 (1.4-6.5); GRAN % 72.5 % (42.2-75.2); HEMATOCRIT 47.1 % (42.0-52.0); HEMOGLOBIN 15.8 g/dl (13.5-18.0); LYMPH # 1.4 K/mm3 (1.2-3.4); LYMPH % 18.2 % (20.0-51.0); MEAN CELL VOLUME 91 fl (80.0-100.0); MEAN CORPUSCULAR HEMOGLOBIN 30 pg (27-31); MEAN CORPUSCULAR HGB CONC 34 g/dl (33.0-37.0); MEAN PLATELET VOLUME 9.9 fl (7.4-10.4); MONO # 0.5 K/mm3 (0.1-0.6); MONO % 6.9 % (1.7-9.3); PLATELET COUNT 264 K/mm3 (130-400); REDCELL DISTRIBUTION WIDTH-CV 13.5 % (11.5-14.5)
[2021-07-06 11:30] LABS: ALBUMIN 4.5 gm/dL (3.5-5.0); BILIRUBIN,TOTAL 0.3 mg/dL (0.2-1.2); CALCIUM 9.8 mg/dL (8.4-10.2); CREATININE, serum 1.13 mg/dL (0.72-1.25); POTASSIUM 4.4 mmol/L (3.5-4.5); TOTAL PROTEIN 7.6 gm/dL (6.2-8.1)
[2021-07-06] MEDS ORDERED: PERCOCET 325 MG1 TA2 PO ×2 (12:02→12:03)
[2021-07-06 12:03] VITALS: BP 138/88; PULSE 74
== END 2021-07-06 12:10 | disposition home or self-care (01) ==
LOC: COL.ER 10:16
PROVIDERS: Physician Assistant
DX: R51.9 Headache, unspecified (principal); T45.1X5A Adverse effect of antineoplastic and immunosuppressive drugs, initial encounter
CPT/HCPCS: J0780; J1200; J7030

== ENCOUNTER 2022-04-18 11:51 | Emergency (ER) | payer SELFPAY ==
[~2022-04-18] VITALS: Ht 182.9 cm; Wt 122.7 kg
[~2022-04-18 11:51] MED LIST changes: +PROAIR HFA0.09 MG/AC IH
[2022-04-18 12:11] VITALS: TEMP 98.2
[2022-04-18 13:55] VITALS: BP 141/83; PULSE 72
[2022-04-18 15:35] LABS: HEMATOCRIT 44.5 % (42.0-52.0); HEMOGLOBIN 14.2 g/dl (13.5-18.0); MEAN CELL VOLUME 94 fl (80.0-100.0); MEAN CORPUSCULAR HEMOGLOBIN 30 pg (27-31); MEAN CORPUSCULAR HGB CONC 32 g/dl (33.0-37.0); MEAN PLATELET VOLUME 10.1 fl (7.4-10.4); PLATELET COUNT 229 K/mm3 (130-400); RED BLOOD COUNT 4.74 M/mm3 (4.20-5.60); REDCELL DISTRIBUTION WIDTH-CV 12.8 % (11.5-14.5)
[2022-04-18 15:51] LABS: ALBUMIN 3.8 gm/dL (3.5-5.0); BILIRUBIN,TOTAL 0.3 mg/dL (0.2-1.2); CALCIUM 9.2 mg/dL (8.4-10.2); POTASSIUM 4.1 mmol/L (3.5-4.5); TOTAL PROTEIN 6.9 gm/dL (6.2-8.1)
[2022-04-18] MEDS ORDERED: PROTONIX 40MG T40 MG PO (16:19)
[2022-04-18 16:29] LABS: BAND 1 % (0-10); EOSINOPHIL 32 % (0-4); LYMPHOCYTE 30 % (20.0-51.0); NEUTROPHILS 34 % (42.0-75.2)
[2022-04-18 16:31] LABS: HYPOCHROMIA 1+; PLATELET ESTIMATE NORMAL (NORMAL)
== END 2022-04-18 16:40 | disposition home or self-care (01) ==
LOC: COL.ER 11:51
PROVIDERS: Emergency Medicine
DX: R10.13 Epigastric pain (principal); G93.49 Other encephalopathy; Z79.891 Long term (current) use of opiate analgesic; Z28.310 Unvaccinated for COVID-19
CPT/HCPCS: C9113; J2765

== ENCOUNTER 2022-11-19 08:30 | Outpatient (RCR) | payer MEDICAID ==
[~2022-11-19 08:30] MED LIST changes: +AMITRIPTYLINE H50 M1 PO; +DESYREL 50MG50 MG PO; +INDOCIN 25MG CA25 MG PO; +MAG-OX 400400 MG/TAB PO; +PREDNISONE10 MG PO; +PROTONIX 40MG T40 MG PO
== END 2022-11-20 | disposition home or self-care (01) ==
LOC: MKS.ESL.PT
DX: M50.10 Cervical disc disorder with radiculopathy, unspecified cervical region (principal); M51.16 Intervertebral disc disorders with radiculopathy, lumbar region; M43.22 Fusion of spine, cervical region
CPT/HCPCS: G0283-GP

== ENCOUNTER 2022-12-17 08:30 | Outpatient (RCR) | payer MEDICAID | END 2022-12-20 | disposition home or self-care (01) | LOC: MKS.ESL.PT | DX: M51.16 Intervertebral disc disorders with radiculopathy, lumbar region (principal); M50.10 Cervical disc disorder with radiculopathy, unspecified cervical region; M43.22 Fusion of spine, cervical region | CPT/HCPCS: G0283-GP ==

== ENCOUNTER 2023-01-13 09:39 | Day surgery (SDC) | payer MEDICAID ==
[~2023-01-13] VITALS: Ht 182.9 cm; Wt 116.2 kg
[2023-01-13 10:38] VITALS: BP 151/77; PULSE 69; TEMP 97.5
[2023-01-13] MEDS ORDERED: DILAUDID 2MG TAB2 MG PO (10:46)
[2023-01-13] MEDS ORDERED: NORCO 325 MG-51 TAB PO (10:47)
[2023-01-13] MEDS ORDERED: BACTRIM DS 8001 TAB PO (10:47)
[2023-01-13] MEDS ORDERED: LIDODERM 5% PATC1 EA TP (10:48)
[2023-01-13] MEDS ORDERED: ASPIRIN E.C. 8181 MG PO (10:48)
[2023-01-13] MEDS ORDERED: SEROQUEL300 MG PO (10:48)
[2023-01-13] MEDS ORDERED: TORADOL 10MG TA10 MG PO (10:49)
[2023-01-13] MEDS ORDERED: MYFORTIC360 MG PO (10:50)
[2023-01-13] MEDS ORDERED: PROZAC40 MG PO (10:51)
[2023-01-13 13:45] VITALS: BP 107/86; PULSE 68; TEMP 97.6
[2023-01-13 14:00] VITALS: BP 127/77; PULSE 68
[2023-01-13 14:15] VITALS: BP 128/83; PULSE 76
[2023-01-13 14:25] VITALS: BP 130/82; PULSE 72
--- NOTE | 2023-01-13 14:35 | NUR ---
1345 RETURNS TO ROOM 5 PER CART. AWAKE, ALERT. RESP UNLABORED. HOB ELEVATED 45 DEGREES. PATIENT IN RIGHT LATERAL POSITION. VITAL SIGNS OBTAINED. DRESSING TO BUTTOCK CLEAN DRY AND INTACT. CALL LIGHT AT SIDE. IN ROOM 1400 TOLERATES PO JUICE WITHOUT NAUSEA. PER PATIENT REQUEST, WILL GIVE PO PAIN MED PRIOR TO CAR RIDE HOME. 1410 AMBULATES TO BATHROOM WITH STANDBY ASSIST. ADMITS TO VOIDING WITHOUT DIFFICULTY 1420 DISCHARGE INSTRUCTIONS REVIEWED. PATIENT VERBALIZES UNDERSTANDING. COPY PROVIDED IN DISCHARGE FOLDER 1435 SITS ON EDGE OF BED. DRESSES WITH ASSIST OF
[2023-01-14] MEDS ORDERED: DILAUDID 2MG TAB2 MG PO (09:59)
== END 2023-01-13 14:38 | disposition home or self-care (01) ==
LOC: SDCO 09:39
DX: L02.31 Cutaneous abscess of buttock (principal); K21.9 Gastro-esophageal reflux disease without esophagitis; Z28.310 Unvaccinated for COVID-19; Z87.891 Personal history of nicotine dependence
CPT/HCPCS: J0330; J0690; J1170; J2250; J2704; J3010; J7120

== ENCOUNTER → 2023-02-18 13:53 | Outpatient (RCR) | payer MEDICAID ==
[~2023-02-18 13:53] MED LIST changes: +ASPIRIN E.C. 8181 MG PO; +DILAUDID 2MG TAB2 MG PO; +MYFORTIC360 MG PO; +PROZAC40 MG PO; +SEROQUEL300 MG PO; +TORADOL 10MG TA10 MG PO
== END ==
LOC: MKS.ESL.PT 12-21 13:15
DX: M54.12 Radiculopathy, cervical region (principal); M43.22 Fusion of spine, cervical region